=== PATIENT | male | born 1960 | race Hispanic/Latino ===

== ENCOUNTER 2019-03-13 10:54 | Emergency (ER) | payer OTHER | END 2019-03-13 11:09 | disposition home or self-care (01) | LOC: EDH 10:54 | DX: K04.7 Periapical abscess without sinus (principal); I10 Essential (primary) hypertension ==

== ENCOUNTER → 2025-03-14 | Outpatient (CLI) | payer OTHER ==
[~2025-03-14] MED LIST: ACET-66 PO; ALLO100T PO; LEVO-70 PO; LISI40TA15 PO; METR-172 PO; Naproxen; OMEP20CA12 PO
[2025-03-14 22:21] VITALS: PULSE 89; RESP 16
[2025-03-14 23:00] VITALS: PULSE 78; RESP 16
[2025-03-14 23:30] VITALS: PULSE 77; RESP 16
[2025-03-15] VITALS (17 sets, daily range): PULSE 72–95; RESP 15–26
== END | disposition home or self-care (01) ==
LOC: SLP 20:23
PROVIDERS: ATTEND Nurse Practitioner Family
DX: G47.33 Obstructive sleep apnea (adult) (pediatric) (principal); R06.83 Snoring; I10 Essential (primary) hypertension; G47.00 Insomnia, unspecified; R35.0 Frequency of micturition; E66.9 Obesity, unspecified; R53.83 Other fatigue; Z68.42 Body mass index [BMI] 45.0-49.9, adult
CPT/HCPCS: 95811